=== PATIENT | male | born 1935 | race Caucasian/White ===

== ENCOUNTER → 2020-01-16 16:19 | Outpatient (CLI) | payer MEDICARE, SELFPAY ==
--- NOTE | ~2020-01-16 | XR_ITS ---
XR lumbar spine 2-3V 01/16/2020 16:36 Indication: Low back pain Procedure: 3 views lumbar spine Comparison: No prior studies for comparison. Findings: Vertebral body heights are maintained. There is disc narrowing at all lumbar levels, most a dvanced at L2-3, L4-5 and L5-S1. No fracture or traumatic malalignment. No evidence for spondylolisth esis. There is facet hypertrophy at L4-5 and L5-S1. Impression: 1: No acute abnormality of the lumbar spine. Moderate lumbar spondylosis. Reviewed, dictated and finalized at location A. Impression: 1: No acute abnormality of the lumbar spine. Moderate lumbar spondylosis.
== END ==
PROVIDERS: PCP Pediatrics; Visit Provider Pediatrics
DX: M54.5 Low back pain (principal)
CPT/HCPCS: 72100

== ENCOUNTER → 2020-01-26 13:31 | Outpatient (CLI) | payer MEDICARE, SELFPAY ==
--- NOTE | ~2020-01-26 | MR_ITS ---
EXAMINATION: MR lumbar spine wo con DATE: 01/26/2020 15:01 INDICATION: Low back pain TECHNIQUE: Magnetic resonance imaging (MRI) of the lumbar spine was performed without intravenous con trast. Sequences included sagittal T2-weighted FSE, sagittal T2-weighted FS FSE, sagittal T1-weighted FSE, and axial T2-weighted FSE. COMPARISON: None FINDINGS: 2 mm retrolisthesis L2 on L3 and 3 mm retrolisthesis L3 on L4 and L4 on L5. Vertebral body heights ar e normal. Severe disc height loss at L2-L3 and L5-S1, moderate disc height loss at L1-L2 and L4-L5 an d mild disc height loss at L3-L4. Mild fibrofatty and fibrovascular degenerative endplate changes at a few levels. 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 The conus medullaris terminates at L2. There is norm al signal in the caudal spinal cord. Paravertebral soft tissues are unremarkable. The following disc levels are specifically discussed: T12-L1: The disc does not extend beyond the endplate margin. There is minimal bilateral facet joint o steoarthritis. There is no neural foraminal stenosis. There is no central canal stenosis. L1-L2: Disc is bulging with annular fissure. There is mild bilateral facet joint osteoarthritis. Ther e is mild bilateral neural foraminal stenosis. There is mild central canal stenosis. L2-L3: Disc is bulging with annular fissure. There is mild bilateral facet joint osteoarthritis. Ther e is mild bilateral neural foraminal stenosis. There is mild central canal stenosis. L3-L4: Disc is bulging with annular fissure. There is mild bilateral facet joint osteoarthritis. Ther e is mild to moderate bilateral neural foraminal stenosis. There is mild central canal stenosis. L4-L5: Disc is bulging with annular fissure and superimposed central disc extrusion with disc materia l extending up to 10 mm caudal to the level of the superior endplate of L5. There is mild to moderate bilateral facet joint osteoarthritis. There is moderate bilateral, right greater than left, neural f oraminal stenosis. There is hypertrophy of the right ligamentum flavum with left-sided hemilaminotomy with posterior decompression. There is minimal central canal stenosis. L5-S1: Disc is minimally bulging. There is mild bilateral facet joint osteoarthritis. There is modera te bilateral neural foraminal stenosis. There is no central canal stenosis. IMPRESSION: 1. Severe lumbar spondylosis with changes of prior left hemilaminotomy at L4-L5. Reviewed, dictated and finalized at location B. IMPRESSION: 1. Severe lumbar spondylosis with changes of prior left hemilaminotomy at L4-L5 .
== END ==
PROVIDERS: PCP Pediatrics; Visit Provider Pediatrics
DX: M47.896 Other spondylosis, lumbar region (principal)
CPT/HCPCS: 72148